=== PATIENT | female | born 1985 | race Caucasian/White ===

== ENCOUNTER 2016-07-22 06:08 | Inpatient (IN) ==
[2016-07-22] MEDS: LACTATED RINGERS 1,000 ML IV SCH ×2 (06:40→10:56)
[2016-07-22] MEDS ORDERED: OXYTOCIN/LR 20 UNIT/1,000 ML BAG IV ONE ×2 (06:42→16:46)
[2016-07-22] MEDS ORDERED: TERBUTALINE 1 MG/1 ML VIAL SUBCUT PRN (07:05)
[2016-07-22] MEDS ORDERED: ONDANSETRON 4 MG/2 ML VIAL IV PRN (07:05)
[2016-07-22] MEDS ORDERED: LACTATED RINGERS 500 ML IV PRN (07:05)
[2016-07-22] MEDS ORDERED: MEPERIDINE 50 MG/1 ML VIAL IV PRN (07:05)
[2016-07-22] MEDS ORDERED: OXYTOCIN/LR 20 UNIT/1,000 ML BAG IV SCH (07:30)
[2016-07-22 07:31] LABS: Basophils % 0.2 % (0.0-0.8); Eosinophils # 0.1 10*3/uL (0.0-0.87); Eosinophils % 0.7 % (0.00-10.9); Hematocrit 32.1 VOL% (35.7-47.0); Hemoglobin 10.2 GM/DL (12.0-16.0); Immature Granulocytes % 0.7 %; Immature Granulocytes Absolute 0.07 #; Lymphocytes % 19.2 % (21.3-54.2); Mean Corpuscular HGB Conc 31.8 GM/DL (32-36); Mean Corpuscular Hemoglobin 27 PG (27-34); Mean Corpuscular Volume 84.3 FL (87-102); Mean Platelet Volume 11.7 FL (9.6-12.0); Monocytes % 9.2 % (1.7-12.7); Neutrophils # 7.4 10*3/uL (1.4-7.4); Platelet Count 257 T/CUMM (130-400); Red Blood Count 3.81 MC/CUMM (3.8-5.5); Red Cell Distribution Width 13.1 % (9.3-17.3); White Blood Count 10.6 T/CUMM (4-12)
--- NOTE | 2016-07-22 09:08 | OB/GYN History & Physical ---
History of Present Illness Chief complaint: 39 weeks, initiation of labor History of present illness: Ms. Mehta is a 31 year old female 3 para 2 EDC is 07/29/2016 at 39 weeks gestation. heart tones are category 1, contractions are very irregular, pelvic exam on admission is 170% and -3 station. Patient will be offered an epidural when appropriate labor will be initiated risks and benefits thoroughly discussed and she is in full agreement Home Medications Medication Instructions Recorded Confirmed Type Multivitamin () [ 1 tablet PO DAILY 07/22/16 07/22/16 History Vitamin] Allergies Allergy/AdvReac Type Severity Reaction Status Date / Time Sulfa (Sulfonamide Allergy HIVES Verified 07/22/16 06:19 Antibiotics) Medical,Surgical,& Family Hx - Medical History Psychological: History of: Bipolar Disorder Musculoskeletal: History of: Back/Neck Problems (SCOLIOSIS-BACK SURGERY) - Surgical History Reproductive Surgeries: Surgical HX of;: Breast Surgery (BREAST AUGMENTATION) - Family History Family History: Denies;: Family Anesthesia Reaction, Family Cancer, Family Diabetes, Family Heart Disease, Family Hematology, Family Hypertension, Family Psychiatric Problems, Family Stroke - Social History Smoking Status: Never smoker Frequency of Alcohol Use: None Type of Drug Use: 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 - Constitutional General appearance: no acute distress - Head Head exam: Present: normal inspection - Eye Eye exam: Present: EOMI Pupils: Present: VINCE - ENT ENT exam: Present: normal exam - Neck Neck exam: Present: normal inspection - Respiratory Respiratory exam: Present: clear to auscultation bilaterally - Breast Breasts: as per HPI Menstruation: as per HPI - Cardiovascular Cardiovascular exam: Present: regular rate and rhythm - GI/Abdominal GI/Abdominal exam: Present: normal bowel sounds - Extremities Exam Extremities exam: Present: normal inspection - Back Exam Back exam: Present: normal inspection - Neurological Exam Neurological exam: Present: alert, oriented X3 - Psychiatric Psychiatric exam: Present: normal affect - Skin Skin exam: Present: normal color Assessment and Plan (1) Term Status: Acute Assessment and plan: Term , 39 weeks gestation, will initiate labor, epidural will be administered when appropriate. Risks benefits are discussed she is in full agreement Current Visit: Yes Results - Labs CBC & BMP: 07/22/16 06:31
[2016-07-22] MEDS ORDERED: CITRIC ACID/SODIUM CITRATE 30 ML UDCUP PO ONE (10:29)
[2016-07-22] MEDS ORDERED: hydrOXYzine HCL 25 MG/1 ML VIAL IM PRN (10:29)
[2016-07-22] MEDS ORDERED: ePHEDrine 50 MG/ML AMP IV PRN (10:29)
[2016-07-22] MEDS ORDERED: ONDANSETRON 4 MG/2 ML VIAL IV ONE (10:29)
[2016-07-22] MEDS ORDERED: diphenhydrAMINE 50 MG/1 ML VIAL IV PRN ×2 (10:29)
[2016-07-22] MEDS ORDERED: PROMETHAZINE 25 MG/1 ML VIAL IM ONE (10:29)
[2016-07-22] MEDS ORDERED: fentaNYL 2 MCG/ROPIV 0.2% EPID 150 ML EPIDURAL SCH (10:29)
[2016-07-22] MEDS ORDERED: FAMOTIDINE 20 MG/2 ML VIAL IV ONE (10:29)
[2016-07-22 14:01] LABS: Apearance,Urine CLEAR (Clear); Bilirubin,Urine Negative (Negative); Blood, Urine Negative (Negative); Glucose,Urine (UA) Negative (Negative); Ketones,Urine 20 mg/dL (Negative); Mucus,Urine Occasional /LPF (Occasional); Nitrite,Urine Negative (Negative); Protein,Urine Negative; RBC,Urine <1 /HPF (0-4); Urine Color Yellow (Yellow); Urine Specific Gravity 1.014 (1.001-1.035); Urine Urobilinogen < 2.0 EU/DL (0.2-1.0); WBC,Urine 1 /HPF (0-6)
[2016-07-22] MEDS ORDERED: DIPH/TET/ACEL PERT BOOSTER VACCINE 0.5 ML VIAL IM ONE (16:46)
[2016-07-22] MEDS ORDERED: BENZOCAINE 20%/MENTHOL 0.5% SPRAY 56 GM CAN TOP PRN (16:46)
[2016-07-22] MEDS ORDERED: ACETAMINOPHEN 325 MG TABLET PO PRN (16:46)
[2016-07-22] MEDS ORDERED: RHO(D) IMMUNE GLOBULIN 300 MCG SYRINGE IM ONE (16:46)
[2016-07-22] MEDS ORDERED: WITCH HAZEL PADS 100/JAR TOP PRN (16:46)
[2016-07-22] MEDS ORDERED: MEASLES/MUMPS/RUBELLA VACCINE 0.5 ML VIAL SUBCUT ONE (16:46)
[2016-07-22] MEDS ORDERED: LANOLIN 50% CREAM 0.3 OZ TUBE TOP PRN (16:46)
[2016-07-22] MEDS ORDERED: oxyCODONE/ACETAMINOPHEN 5-325 MG TABLET PO PRN ×2 (16:46)
[2016-07-22] MEDS ORDERED: HYDROCORTISONE 2.5% RECTAL CREAM 30 GM TUBE TOP PRN (16:46)
[2016-07-22] MEDS ORDERED: BISACODYL 10 MG SUPP RECTAL PRN (16:46)
--- NOTE | 2016-07-22 16:46 | Event Note ---
HPI: The patient presented for elective induction of labor due to term . The risk and benefits were thoroughly discussed with the patient and significant other, plan of care was discussed with Dr. Tee and all parties were in agreement plan. Stage I: The patient was admitted she received IV fluids and IV Pitocin per protocol. Artificial rupture membranes was performed with clear fluid noted. An epidural was obtained for pain control. The patient progressed in labor with a CAT 1 tracing. She had an uneventful course of labor. Stage II: Patient was complete and complained of pressure and desire to push. She pushed for approximately 20 minutes after which time the infant's head was delivered. The mouth and nose were suctioned on perineum. The remainder of the infant was delivered at 1604. A viable female infant was noted. Apgars were 9 at 1 minute and 9 at 5 minutes. weight was 7 pounds and 6 ounces. A cord pH was obtained and sent to the lab. The was placed on the mom' s abdomen for skin to skin bonding. Stage III: Spontaneous delivery of a Clark placenta with a three-vessel cord noted. The placenta was further examined and appear to be grossly intact. The vagina cervix was inspected with a first-degree para urethral laceration noted which was hemostatic. Estimated blood loss is approximately 150 cc. At the time of dictation mother and baby are both in stable condition.
[2016-07-22] MEDS ORDERED: ACETAMINOPHEN/CODEINE 300-30 MG TABLET PO PRN (16:48)
[2016-07-22] MEDS: DOCUSATE SODIUM 100 MG CAPSULE PO SCH (22:00)
[2016-07-23 06:34] LABS: Basophils % 0.1 % (0.0-0.8); Eosinophils # 0.1 10*3/uL (0.0-0.87); Eosinophils % 0.5 % (0.00-10.9); Hemoglobin 9.5 GM/DL (12.0-16.0); Immature Granulocytes % 0.6 %; Lymphocytes # 2.1 10*3/uL (1.4-4.0); Lymphocytes % 12.9 % (21.3-54.2); Mean Corpuscular HGB Conc 32.8 GM/DL (32-36); Mean Corpuscular Hemoglobin 27 PG (27-34); Mean Corpuscular Volume 81.9 FL (87-102); Mean Platelet Volume 11.5 FL (9.6-12.0); Monocytes # 1.4 10*3/uL (0.11-0.8); Monocytes % 8.7 % (1.7-12.7); Neutrophils # 12.4 10*3/uL (1.4-7.4); Neutrophils % 77.2 % (38.7-73.9); Platelet Count 204 T/CUMM (130-400); Red Blood Count 3.54 MC/CUMM (3.8-5.5); White Blood Count 16.1 T/CUMM (4-12)
[2016-07-23] MEDS: IBUPROFEN 800 MG TABLET PO PRN ×2 (07:48→13:30)
[2016-07-23] MEDS: DOCUSATE SODIUM 100 MG CAPSULE PO SCH ×2 (09:40→20:39)
--- NOTE | 2016-07-23 12:47 | Anesthesia ---
Anesthesia Post OP - Post Ansesthetic Evaluation Patient seen in post op: Yes Resp: within normal limits CV: within normal limits Mental: within normal limits Temp: within normal limits [id number]: within normal limits Nausea and Vomiting: within normal limits Pain: within normal limits
--- NOTE | 2016-07-23 12:48 | OB/GYN Progress Note ---
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 Absent: tenderness Results - Labs CBC & BMP: 07/23/16 06:21
[2016-07-24 07:29] VITALS: BP 138/77
[2016-07-24] MEDS: DOCUSATE SODIUM 100 MG CAPSULE PO SCH (09:18)
--- NOTE | 2016-09-27 08:10 | Discharge Summary ---
A 31-year-old, 39 weeks' gestation, 3, para 2, admitted for induction of labor. The patient received prostaglandin gel and subsequently delivered. heart tones were category I. The patient delivered an at 1604, female, Apgars 9 and 9, 7 pounds and 6 ounces. Cord pH was also obtained. She remained in the hospital for approximately two postoperative days and then subsequently was discharged from the hospital without any complications. ANTIONE
== END 2016-07-24 12:05 | disposition home or self-care (01) | DRG 775 ==
LOC: N.LDOUT 06:08 → N.LD 06:12 → N.OB 20:00
PROVIDERS: ADMIT Obstetrics & Gynecology; ATTEND Obstetrics & Gynecology